=== PATIENT | female | born 1935 | race Two or more races ===

== ENCOUNTER 2018-03-16 04:41 | Inpatient (IN) | payer OTHER ==
[~2018-03-16] VITALS: Ht 157.5 cm; Wt 61.4 kg
[2018-03-16 05:31] LABS: Basophils # (auto) 0.1 uL; Eosinophils # (auto) 0 uL; Eosinophils % (auto) 0.2 % (0.0-7.0); Hemoglobin 11.1 g/dL (12.2-16.2); Lymphocytes # (auto) 1.1 uL; Lymphocytes % (auto) 11.2 % (10.0-50.0); Mean Corpuscular Hemoglobin 29.7 pg (28.0-32.0); Mean Corpuscular Hgb Conc. 32.6 g/dL (32.0-36.0); Mean Corpuscular Volume 91.4 fL (80.0-100.0); Monocytes # (auto) 0.9 uL; Monocytes % (auto) 9.4 % (0.0-12.0); Neutrophils # (auto) 7.8 uL; Neutrophils % (auto) 78.2 % (37.0-80.0); Platelet Count (auto) 384 10^3/uL (140-450); Red Blood Cells 3.72 10^6/uL (4.0-5.20); Red Cell Distribution Width 14.7 % (11.8-14.3)
[2018-03-16 05:33] LABS: Urine Bacteria NONE SEEN /hpf (None Seen); Urine Blood Negative /uL (Negative); Urine Hyaline Cast MANY /lpf (0 - 2); Urine Mucus FEW (None Seen); Urine Specific Gravity 1.014 (1.001-1.035); Urine WBC 1 /hpf (0 - 5)
[2018-03-16 05:50] LABS: Alcohol, Urine < 3.0 mg/dL (0-5); Amphetamine Screen, Urine NEGATIVE (NEGATIVE); Barbiturate Scree,Urine NEGATIVE (NEGATIVE); Benzodiazephine Screen, Urine NEGATIVE (NEGATIVE); Cannabinoid Screen, Urine NEGATIVE (NEGATIVE); Cocaine Screen, Urine NEGATIVE (NEGATIVE); Opiate Scree,Urine NEGATIVE (NEGATIVE); Phencyclidine Screen, Urine NEGATIVE (NEGATIVE)
[2018-03-16 05:53] LABS: Acetaminophen < 2.0 ug/mL (10-30); Salicylate < 1.7 mg/dL (2.8-20.0)
[2018-03-16 05:56] LABS: Alanine Aminotransferase 15 U/L (13-56); Albumin 3.4 g/dL (3.4-5.0); Alkaline Phosphatase 63 U/L (45-117); Anion Gap 11 (5-15); Aspartate Aminotransferase 16 U/L (15-37); Bilirubin, Total 0.5 mg/dL (0.2-1.0); Blood Urea Nitrogen 25 mg/dL (7-18); Calcium 8.7 mg/dL (8.5-10.1); Carbon Dioxide 21 mmol/L (21-32); Chloride 108 mmol/L (98-107); GFR African American 29 mL/min; GFR Non-African American 24 mL/min; Glucose 170 mg/dL (74-106); Potassium 4.4 mmol/L (3.5-5.1); Sodium 140 mmol/L (136-145); Total Protein 6.8 g/dL (6.4-8.2)
[2018-03-16] MEDS ORDERED: PROCHLORPERAZINE MALEATE 10 MG TAB PO PRN (09:00)
[2018-03-16] MEDS ORDERED: LORazepam 0.5 MG TAB PO PRN (09:00)
[2018-03-16] MEDS ORDERED: diphenhdrAMINE HCL 25 MG CAP PO PRN (09:00)
[2018-03-16] MEDS ORDERED: cefTRIAXone 1GM/10ml IVPUSH 10 ML IV ONE (09:15)
[2018-03-16] MEDS ORDERED: DEXTROSE (50%) 50ML SYRG IV PRN ×2 (09:15→10:00)
[2018-03-16 09:33] LABS: INR 1.06 (0.9-1.15); Prothrombin Time 11.3 sec (9.27-12.13)
[2018-03-16] MEDS ORDERED: VANCOMYCIN PER PHARMACY 0 MG IV SCH (10:00)
[2018-03-16] MEDS ORDERED: ENOXAPARIN SOD 80 MG/0.8ML SYRINGE SC SCH (10:00)
[2018-03-16] MEDS ORDERED: FLUoxetine HCL 20 MG CAP PO SCH (10:00)
[2018-03-16] MEDS ORDERED: MORPHINE SULFATE 4 MG/ML SYR/VIAL IV PRN (10:00)
[2018-03-16] MEDS ORDERED: ENOXAPARIN SOD 100 MG/1 ML SYRINGE SC SCH (10:00)
[2018-03-16] MEDS ORDERED: PANTOPRAZOLE 40 MG TAB PO SCH (10:00)
[2018-03-16] MEDS ORDERED: NITROGLYCERIN 0.4 MG SL TAB SL PRN (10:00)
[2018-03-16] MEDS ORDERED: VANCOMYCIN 1GM/250ML 250 ML IV ONE (11:00)
[2018-03-16] MEDS: SODIUM CHLORIDE 0.9% 1,000 ML IV SCH ×2 (11:12→22:40)
[2018-03-16] MEDS: InsuLIN REG 1unit/0.01ml Soln (100units/ml) SC SCH ×3 (11:25→22:00)
[2018-03-16] MEDS: ACCU-CHEK COMFORT CURVE STRIP VI SCH ×3 (11:25→22:24)
[2018-03-16] MEDS ORDERED: InsuLIN REG 1unit/0.01ml Soln (100units/ml) SC SCH (11:30)
[2018-03-16] MEDS ORDERED: ACCU-CHEK COMFORT CURVE STRIP VI SCH (11:30)
[2018-03-16] MEDS: CEFTRIAXONE SODIUM 2 GM in D5W 5% 50 ML IV SCH (11:38)
[2018-03-16] MEDS: ASPirin 81 mg TAB PO SCH (17:16)
[2018-03-16 17:46] LABS: Lactic Acid w/Reflex 2.9 mmol/L (0.4-2.0)
[2018-03-17 06:31] LABS: Basophils # (auto) 0.1 uL; Basophils % (auto) 1.2 % (0.0-2.0); Eosinophils # (auto) 0.1 uL; Eosinophils % (auto) 1.5 % (0.0-7.0); Hematocrit 32.8 % (36.0-46.0); Lymphocytes # (auto) 1.6 uL; Lymphocytes % (auto) 24.7 % (10.0-50.0); Mean Corpuscular Hemoglobin 30.5 pg (28.0-32.0); Mean Corpuscular Hgb Conc. 33.7 g/dL (32.0-36.0); Mean Corpuscular Volume 90.5 fL (80.0-100.0); Monocytes # (auto) 0.6 uL; Monocytes % (auto) 9.2 % (0.0-12.0); Neutrophils # (auto) 4.1 uL; Neutrophils % (auto) 63.4 % (37.0-80.0); Nucleated Red Blood Cells % 0.1 %; Platelet Count (auto) 313 10^3/uL (140-450); Red Blood Cells 3.63 10^6/uL (4.0-5.20); Red Cell Distribution Width 14.2 % (11.8-14.3); White Blood Cell 6.5 10^3/uL (4.4-10.8)
[2018-03-17 06:45] LABS: BUN/Creatinine Ratio 16.5; Calcium 8.7 mg/dL (8.5-10.1); Potassium 4.2 mmol/L (3.5-5.1)
[2018-03-17] MEDS: InsuLIN REG 1unit/0.01ml Soln (100units/ml) SC SCH ×4 (07:17→21:18)
[2018-03-17] MEDS: ACCU-CHEK COMFORT CURVE STRIP VI SCH ×4 (07:17→21:18)
[2018-03-17] MEDS ORDERED: cefTRIAXone 1GM/10ml IVPUSH 10 ML IV SCH (09:00)
[2018-03-17] MEDS: VANCOMYCIN 1GM/250ML 250 ML IV SCH (10:00)
[2018-03-17] MEDS: CEFTRIAXONE SODIUM 2 GM in D5W 5% 50 ML IV SCH (10:00)
[2018-03-17] MEDS: ASPirin 81 mg TAB PO SCH (10:45)
[2018-03-17] MEDS: SODIUM CHLORIDE 0.9% 1,000 ML IV SCH ×2 (10:45→23:11)
[2018-03-17 13:30] VITALS: BP 136/69
[2018-03-17 22:07] VITALS: BP 146/65
[2018-03-17] MEDS ORDERED: RANI-229 PO (23:10)
[2018-03-17] MEDS ORDERED: MELO1TAB56 PO (23:10)
[2018-03-17] MEDS ORDERED: METF-370 PO (23:10)
[2018-03-17] MEDS ORDERED: VALS40TA2 PO (23:10)
[2018-03-17] MEDS ORDERED: BACL10TA PO (23:10)
[2018-03-17] MEDS ORDERED: HYDR-4683 PO (23:10)
[2018-03-17] MEDS ORDERED: OXYB15TA12 PO (23:10)
[2018-03-17] MEDS ORDERED: INSLANTI SC (23:10)
[2018-03-18 05:35] VITALS: BP 149/77
[2018-03-18] MEDS: InsuLIN REG 1unit/0.01ml Soln (100units/ml) SC SCH ×4 (06:51→21:06)
[2018-03-18] MEDS: ACCU-CHEK COMFORT CURVE STRIP VI SCH ×4 (06:51→21:06)
[2018-03-18 07:51] LABS: Basophils # (auto) 0.1 uL; Basophils % (auto) 1.1 % (0.0-2.0); Eosinophils # (auto) 0 uL; Eosinophils % (auto) 0.6 % (0.0-7.0); Lymphocytes % (auto) 14.3 % (10.0-50.0); Mean Corpuscular Hemoglobin 29.8 pg (28.0-32.0); Mean Corpuscular Hgb Conc. 33.2 g/dL (32.0-36.0); Mean Corpuscular Volume 89.6 fL (80.0-100.0); Monocytes # (auto) 0.6 uL; Monocytes % (auto) 8.2 % (0.0-12.0); Neutrophils # (auto) 5.2 uL; Neutrophils % (auto) 75.8 % (37.0-80.0); Platelet Count (auto) 282 10^3/uL (140-450); Red Blood Cells 4.02 10^6/uL (4.0-5.20); Red Cell Distribution Width 14.2 % (11.8-14.3); White Blood Cell 6.8 10^3/uL (4.4-10.8)
[2018-03-18 08:15] LABS: Albumin 2.9 g/dL (3.4-5.0); BUN/Creatinine Ratio 18.3; Bilirubin, Total 0.5 mg/dL (0.2-1.0); Calcium 8.4 mg/dL (8.5-10.1); Potassium 3.7 mmol/L (3.5-5.1); Total Protein 6.7 g/dL (6.4-8.2)
[2018-03-18 09:00] VITALS: BP 151/72
[2018-03-18] MEDS: ASPirin 81 mg TAB PO SCH (09:30)
[2018-03-18] MEDS: CEFTRIAXONE SODIUM 2 GM in D5W 5% 50 ML IV SCH (09:30)
[2018-03-18] MEDS: VANCOMYCIN 1GM/250ML 250 ML IV SCH (09:30)
[2018-03-18] MEDS: SODIUM CHLORIDE 0.9% 1,000 ML IV SCH (12:25)
[2018-03-18 12:48] VITALS: BP 151/68
[2018-03-18 15:31] LABS: Folate (Folic Acid) 14.29 ng/mL (5.38-24)
[2018-03-18 17:00] VITALS: BP 144/67
[2018-03-18 22:00] VITALS: BP 142/76
[2018-03-18] MEDS ORDERED: ACETAMINOPHEN 325 MG TAB PO PRN (22:15)
[2018-03-18] MEDS ORDERED: PIPERACILLIN-TAZOB 3.375GM 100 ML IV ONE (22:15)
[2018-03-19] MEDS: SODIUM CHLORIDE 0.9% 1,000 ML IV SCH (00:30)
[2018-03-19 05:00] VITALS: BP 148/77
[2018-03-19] MEDS: ACCU-CHEK COMFORT CURVE STRIP VI SCH ×3 (05:52→17:00)
[2018-03-19] MEDS: InsuLIN REG 1unit/0.01ml Soln (100units/ml) SC SCH ×3 (05:52→17:00)
[2018-03-19 06:49] LABS: Basophils # (auto) 0.1 uL; Basophils % (auto) 1.1 % (0.0-2.0); Eosinophils # (auto) 0 uL; Eosinophils % (auto) 0.8 % (0.0-7.0); Hematocrit 36.1 % (36.0-46.0); Hemoglobin 12.1 g/dL (12.2-16.2); Lymphocytes # (auto) 1.1 uL; Lymphocytes % (auto) 16.2 % (10.0-50.0); Mean Corpuscular Hemoglobin 30.1 pg (28.0-32.0); Mean Corpuscular Hgb Conc. 33.5 g/dL (32.0-36.0); Mean Corpuscular Volume 89.7 fL (80.0-100.0); Monocytes # (auto) 0.7 uL; Monocytes % (auto) 11.1 % (0.0-12.0); Neutrophils # (auto) 4.6 uL; Neutrophils % (auto) 70.8 % (37.0-80.0); Nucleated Red Blood Cells % 0.1 %; Platelet Count (auto) 248 10^3/uL (140-450); Red Blood Cells 4.03 10^6/uL (4.0-5.20); Red Cell Distribution Width 14.2 % (11.8-14.3); White Blood Cell 6.5 10^3/uL (4.4-10.8)
[2018-03-19 06:58] LABS: BUN/Creatinine Ratio 19.6; Calcium 8.3 mg/dL (8.5-10.1); Potassium 3.6 mmol/L (3.5-5.1)
[2018-03-19 08:00] VITALS: BP 150/76
[2018-03-19] MEDS: ASPirin 81 mg TAB PO SCH (09:29)
[2018-03-19 12:00] VITALS: BP 160/84
[2018-03-19 17:00] VITALS: BP 150/69
== END 2018-03-19 17:10 | disposition hospice, home (50) | DRG 871 ==
LOC: EDBD 04:41 → ER 04:49 → TELE 04:50 → TELE-CENTR 03-17 13:15
PROVIDERS: ADMIT Internal Medicine; ATTEND Internal Medicine
DX: A41.9 Sepsis, unspecified organism (principal); G93.41 Metabolic encephalopathy; N17.0 Acute kidney failure with tubular necrosis; E87.2 Acidosis; I77.819 Aortic ectasia, unspecified site; Z96.651 Presence of right artificial knee joint; E11.9 Type 2 diabetes mellitus without complications; I10 Essential (primary) hypertension; M19.90 Unspecified osteoarthritis, unspecified site; E86.0 Dehydration; G40.909 Epilepsy, unspecified, not intractable, without status epilepticus; N19 Unspecified kidney failure
CPT/HCPCS: 36415; 70450; 70551; 71045; 73560; 73700; 76705; 80048; 80053; 80202; 80307; 80329; 81001; 81025; 82550; 82607; 82746; 82962; 83036; 83605; 84439; 84443; 84484; 85025; 85610; 86592; 87040; 87086; 93306; 93886; 93970; 95819; 97163; J0696; J1815; J2543; J7060